=== PATIENT | male | born 1965 | race Caucasian/White ===

== ENCOUNTER 2023-09-03 00:05 | Emergency (ER) | payer OTHER ==
[2023-09-03] MEDS: Sodium Chloride 0.9% 1,000 ML IV ONE (00:50)
[2023-09-03] MEDS: Ondansetron 4 MG/2 ML SDV IVPUSH ONE (00:50)
[2023-09-03] MEDS: Ketorolac 30 MG/ML SDV IVPUSH ONE (00:50)
[2023-09-03 01:01] LABS: BASOPHILS ABSOLUTE AUTO 0.02 K/uL (0.00-0.20); BASOPHILS PERCENT AUTO 0.1 % (0.0-1.0); EOSINOPHILS ABSOLUTE AUTO 0.04 K/uL (0.00-0.45); EOSINOPHILS PERCENT AUTO 0.3 % (0.0-6.0); HEMOGLOBIN 17.6 g/dL (14.0-18.0); IMMATURE GRAN ABSOLUTE AUTO 0.05 K/uL (0.00-0.05); IMMATURE GRAN PERCENT AUTO 0.3 % (0.0-0.4); LYMPHOCYTES ABSOLUTE AUTO 1.11 K/uL (1.00-4.80); LYMPHOCYTES PERCENT AUTO 7.5 % (24.0-44.0); MEAN CORPUSCULAR HEMOGLOBIN 31.8 pg (28.0-32.0); MEAN CORPUSCULAR HGB CONC 35.9 g/dL (32.0-36.0); MEAN CORPUSCULAR VOLUME 88.4 fL (83.0-99.0); MEAN PLATELET VOLUME 9.9 fL (9.4-12.4); MONOCYTES ABSOLUTE AUTO 0.47 K/uL (0.00-0.80); MONOCYTES PERCENT AUTO 3.2 % (0.0-8.0); NEUTROPHILS ABSOLUTE AUTO 13.05 K/uL (1.80-7.70); NEUTROPHILS PERCENT AUTO 88.6 % (41.0-71.0); PLATELET COUNT,PLT 252 K/uL (150-400); RED BLOOD CELL COUNT 5.54 M/uL (4.52-5.90); WHITE BLOOD CELL COUNT,WBC 14.74 K/uL (3.9-11.3)
[2023-09-03] MEDS: Metoclopramide 10 MG/2 ML SDV IVPUSH ONE (01:11)
[2023-09-03 01:26] LABS: A/G RATIO 1.1 (0.9-1.6); ALBUMIN 4.3 g/dL (3.4-5.0); BILIRUBIN TOTAL 2.1 mg/dL (0.2-1.0); CALCIUM 9.7 mg/dL (8.5-10.1); CARBON DIOXIDE,CO2 26.6 mmol/L (21.0-32.0); CREATININE 1.1 mg/dL (0.8-1.3); EST CRCL DRUG DOSING (CG) 73.2 mL/min; POTASSIUM,K 4.7 mmol/L (3.5-5.1); PROTEIN TOTAL,TP 8.1 g/dL (6.4-8.2)
[2023-09-03] MEDS: Iopamidol 755 MG/ML 500 ML Multipack Bottle IVPUSH ONE (02:09)
[2023-09-03] MEDS: Morphine 4 MG/ML Syringe IVPUSH ONE (02:31)
== END 2023-09-03 04:44 | disposition home or self-care (01) ==
LOC: MW.ED 00:05
DX: R10.84 Generalized abdominal pain (principal); R11.10 Vomiting, unspecified; R19.7 Diarrhea, unspecified; Z79.899 Other long term (current) drug therapy
CPT/HCPCS: 36415; 74177; 80053; 85025; 96361; 96374; 96375; 99284; J1885; J2270; J2405; J2765; J7030; Q9967

== ENCOUNTER 2025-04-07 08:20 | Emergency (ER) | payer OTHER ==
[2025-04-07] MEDS ORDERED: Sodium Chloride 0.9% 2.5 ML Syringe FLUSH PRN (08:28)
[2025-04-07] MEDS ORDERED: Sodium Chloride 0.9% 10 ML Syringe FLUSH PRN (08:28)
[2025-04-07 08:53] LABS: BASOPHILS ABSOLUTE AUTO 0.02 K/uL (0.00-0.20); BASOPHILS PERCENT AUTO 0.2 % (0.0-1.0); EOSINOPHILS ABSOLUTE AUTO 0.10 K/uL (0.00-0.45); EOSINOPHILS PERCENT AUTO 0.8 % (0.0-6.0); IMMATURE GRAN ABSOLUTE AUTO 0.05 K/uL (0.00-0.05); IMMATURE GRAN PERCENT AUTO 0.4 % (0.0-0.4); LYMPHOCYTES ABSOLUTE AUTO 1.64 K/uL (1.00-4.80); LYMPHOCYTES PERCENT AUTO 13.5 % (24.0-44.0); MEAN PLATELET VOLUME 9.5 fL (9.4-12.4); MONOCYTES ABSOLUTE AUTO 0.56 K/uL (0.00-0.80); MONOCYTES PERCENT AUTO 4.6 % (0.0-8.0); NEUTROPHILS ABSOLUTE AUTO 9.75 K/uL (1.80-7.70); NEUTROPHILS PERCENT AUTO 80.5 % (41.0-71.0); NRBC ABSOLUTE 0.00 K/uL (0.00-0.02); NRBC PERCENT 0.0 /100WBC (0.0-0.2); PLATELET COUNT,PLT 273 K/uL (150-400); RED BLOOD CELL COUNT 5.28 M/uL (4.52-5.90); WHITE BLOOD CELL COUNT,WBC 12.12 K/uL (3.9-11.3)
[2025-04-07] MEDS: droPERidol 2.5 MG/ML SDV IVPUSH ONE (08:58)
[2025-04-07] MEDS: Pantoprazole 40 MG in Sodium Chloride 0.9% 10 ML IVPUSH ONE (09:00)
[2025-04-07 09:05] LABS: INR 1.03 (0.86-1.11)
[2025-04-07] MEDS: Iopamidol 755 MG/ML 500 ML Multipack Bottle IVPUSH STA (09:10)
[2025-04-07 09:20] LABS: A/G RATIO 1.3 (0.9-1.6); ALANINE AMINOTRANSFERASE,ALT 28 IU/L (14-63); ASPARTATE AMNIOTRANSFERASE,AST 17 IU/L (15-37); BILIRUBIN TOTAL 1.9 mg/dL (0.2-1.0); BLOOD UREA NITROGEN,BUN 14 mg/dL (7.0-18.0); CARBON DIOXIDE,CO2 31.5 mmol/L (21.0-32.0); CHLORIDE,CL 104 mmol/L (98-107); CREATININE 1.0 mg/dL (0.8-1.3); EST CRCL DRUG DOSING (CG) 79.54 mL/min; ETHANOL BLOOD MEDICAL <3 mg/dL; GLUCOSE RANDOM 132 mg/dL (74-106); POTASSIUM,K 4.3 mmol/L (3.5-5.1); PROTEIN TOTAL,TP 7.5 g/dL (6.4-8.2); SODIUM,NA 142 mmol/L (136-148)
[2025-04-07 09:21] LABS: ESTIMATED GFR 87 mL/min (>60)
[2025-04-07] MEDS: Alum Hydrox/Mag Hydrox/Simeth 15 ML, Metoclopramide 5 MG, Lidocaine 2% 5 ML PO ONE (09:56)
[2025-04-07 10:04] LABS: APPEARANCE,URINE CLEAR; GLUCOSE,URINE NEGATIVE (NEGATIVE); OCCULT BLOOD,URINE TRACE-INTACT (NEGATIVE)
[2025-04-07] MEDS: Labetalol 100 MG/20 ML MDV IVPUSH ONE (10:16)
[2025-04-07 10:30] LABS: EPITHELIAL CELLS,URINE NOT SEEN (NONE-FEW)
== END 2025-04-07 11:13 | disposition home or self-care (01) ==
LOC: MW.ED 08:20
DX: G89.18 Other acute postprocedural pain (principal); R10.84 Generalized abdominal pain; R19.8 Other specified symptoms and signs involving the digestive system and abdomen; I10 Essential (primary) hypertension; Z79.899 Other long term (current) drug therapy; Z90.49 Acquired absence of other specified parts of digestive tract
CPT/HCPCS: 36415; 74177; 80053; 80307; 81001; 83036; 83605; 83690; 83735; 85025; 85610; 87428; 96361; 96374; 96375; 99284; A9270; J1790; J1920; J2270; J2470; J3490; J7030; Q9967; 99283